=== PATIENT | female | born 1960 | race Caucasian/White ===

== ENCOUNTER 2016-07-12 18:27 | Emergency (ER) | payer BC, OTHER ==
[~2016-07-12] VITALS: Ht 149.9 cm; Wt 79.4 kg
[~2016-07-12 18:27] MED LIST: BYSTOLIC10 MG PO; Cymbalta PO; Levothroid,Synthroid PO; NEURONTIN300 MG PO; PERCOCET 5/31 TABLET PO; SYNTHROID88 MCG PO; VOLTAREN75 MG PO; ZOFRAN4 MG PO
[2016-07-12 19:14] LABS: HEMATOCRIT 43.2 % (36.0-46.0); MCH 31.4 PG (29.0-34.0); MCV 89.8 FL (83-99); MEAN PLAT.VOLUME 8.8 uM^3 (9.5-12.4); PLATELET COUNT 323 K/uL (156-360); RBC DIS.WIDTH-SD 38.3 % (39-53); RED BLOOD COUNT 4.81 M/uL (3.80-5.20)
[2016-07-12 19:18] LABS: WHITE BLOOD COUNT 14.5 K/uL (4.1-10.2)
[2016-07-12 19:29] LABS: CHLORIDE 104 mEq/L (99-109); POTASSIUM 4.3 mEq/L (3.7-5.4); SODIUM 140 mEq/L (136-147)
[2016-07-12 19:31] LABS: GLUCOSE 88 mg/dL (70-99)
[2016-07-12 19:32] LABS: ANION GAP 12 MEQ/L (2-14)
[2016-07-12 19:34] LABS: TROP-I INTERPRETATION NEGATIVE; TROPONIN-I < 0.01 ng/mL (0.0-0.30)
[2016-07-12 19:35] LABS: GFR ESTIMATE (CALCULATED) > 59 mL/min/; UREA NITROGEN (BUN) 33 mg/dL (9-23)
[2016-07-12 20:16] LABS: D-DIMER ELISA 0.25 mg/L FEU (< 0.57)
[2016-07-12] MEDS ORDERED: DEXAMETHASONE4 MG PO ×2 (20:58→20:59)
[2016-07-12] MEDS ORDERED: SYNTHROID175 MCG PO (20:58)
[2016-07-12] MEDS ORDERED: ZIPSOR25 MG PO (20:59)
[2016-07-12 22:46] LABS: TROP-I INTERPRETATION NEGATIVE; TROPONIN-I < 0.01 ng/mL (0.0-0.30)
[2016-07-12] MEDS ORDERED: NORCO 5/3251 TABLET PO (22:46)
[2016-07-12 23:02] VITALS: BP 113/79
== END 2016-07-12 23:16 | disposition home or self-care (01) ==
LOC: EME 18:27
PROVIDERS: Emergency Medicine
DX: R07.89 Other chest pain (principal); I10 Essential (primary) hypertension; M79.7 Fibromyalgia; E03.9 Hypothyroidism, unspecified
CPT/HCPCS: 71020; 80048; 84484; 85027; 85379; 93005; 99281; 99285; J2270; J2405